=== PATIENT | female | born 1940 | race Caucasian/White ===

== ENCOUNTER → 2016-09-26 | Outpatient (CLI) | payer OTHER, MEDICARE ==
[2016-09-26 09:39] LABS: HEMATOCRIT 41.6 % (37.0-47.0); HEMOGLOBIN 13.9 g/dL (12.0-16.0); MEAN CORPUSCULAR HEMOGLOBIN 28.1 PG (27-31); MEAN CORPUSCULAR HGB CONC 33.4 g/dL (33-37); MEAN PLATELET VOLUME 10.3 FL (7.4-12.2); RED BLOOD COUNT 4.95 10^6/uL (4.20-5.40)
[2016-09-26 09:40] LABS: BASOPHILS # (AUTO) 0.05 10*3/UL; BASOPHILS % (AUTO) 0.8 % (0-1); EOSINOPHILS # (AUTO) 0.14 10*3/UL; EOSINOPHILS % (AUTO) 2.2 % (0-8); LYMPHOCYTES # (AUTO) 1.68 10*3/uL; MONOCYTES # (AUTO) 0.74 10*3/UL (0.3-0.8); MONOCYTES % (AUTO) 11.7 % (5-15); NEUTROPHILS # (AUTO) 3.68 10*3/UL; NEUTROPHILS % (AUTO) 58.4 % (50-80); PLATELET MORPHOLOGY COMMENT NORMAL MORPHOLOGY (NORM); RBC MORPHOLOGY COMMENT NORMAL MORPHOLOGY (NORM); WBC MORPHOLOGY COMMENT NORMAL MORPHOLOGY (NORM)
[2016-09-26 10:14] LABS: CALCIUM 9.3 mg/dL (8.7-10.7); CHOL/HDL RATIO 4.42 RATIO (0-4.0)
== END ==
LOC: LAB 09:14
PROVIDERS: ATTEND Internal Medicine
DX: I10 Essential (primary) hypertension (principal); E55.9 Vitamin D deficiency, unspecified; E78.5 Hyperlipidemia, unspecified; R53.83 Other fatigue; M15.8 Other polyosteoarthritis
CPT/HCPCS: 36415; 80053; 80061; 82652; 84443; 85025

== ENCOUNTER → 2016-09-28 | Outpatient (CLI) | payer OTHER, MEDICARE | LOC: MMPC 11:11 | PROVIDERS: ATTEND Internal Medicine | DX: R92.8 Other abnormal and inconclusive findings on diagnostic imaging of breast (principal); M81.0 Age-related osteoporosis without current pathological fracture; I10 Essential (primary) hypertension | CPT/HCPCS: 99214 ==

== ENCOUNTER → 2016-11-07 | Outpatient (CLI) | payer OTHER, MEDICARE | LOC: MMPC 11:11 | PROVIDERS: ATTEND Surgery | DX: D05.11 Intraductal carcinoma in situ of right breast (principal) | CPT/HCPCS: 99203; G0463 ==

== ENCOUNTER 2016-11-18 08:57 | Day surgery (SDC) | payer OTHER, MEDICARE ==
[~2016-11-18 08:57] MED LIST: LIDOCAINE W/ SODIUM BICARB 0.5 ML SYR ONE; Lactated Ringers 1,000 ML PRIMARY IV ONE; ceFAZolin Inj 2gm (Premix) 50 ML IV ONE
[2016-11-18 09:30] VITALS: RESP 11
[2016-11-18] MEDS ORDERED: fentaNYL Inj 100 MCG/2 ML VIAL ONE (10:19)
[2016-11-18] MEDS ORDERED: MIDAZOLAM 5 MG/1 ML ONE (10:19)
[2016-11-18] MEDS ORDERED: BUPIVACAINE 0.25% W/ EPI - 10 ML VIAL ONE (11:38)
[2016-11-18] MEDS ORDERED: DEXAMETHASONE PF 10 MG/1 ML VIAL ONE (12:19)
[2016-11-18] MEDS ORDERED: Lactated Ringers 1,000 ML PRIMARY IV ONE (12:21)
[2016-11-18] MEDS ORDERED: ePHEDrine Inj 50 MG/ML AMP ONE (12:46)
--- NOTE | 2016-11-18 13:17 | GEN.OPNOTE ---
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 Procedure: Right partial mastectomy. Surgeon: Db Laurent MD Anesthesia Provider: Madeline Hernandez CRNA Anesthesia Type: General Estimated Blood Loss (mL): 50 Fluids: 1500 mL of crystalloid. 2 g of IV Ancef at the start of the procedure. Pathology: Specimens to pathology. #1 partial mastectomy specimen inked and sutured for orientation. #2 new inferior margin. New inferior margin inked. Indications: Patient had a stereotactic biopsy which showed 2 sites of ductal carcinoma in situ in the right lateral breast. These were marked with a clip. Preoperative needle localization was performed. Findings: The wide local excision was accomplished with electrocautery. Specimen mammogram showed that the 2 clips, the wires, and some other calcifications were included in the specimen. Complications: None. Operative Summary: The patient was taken to the operating suite and placed on the operating table in the supine position. Her right arm was placed on an armboard. Following adequate general anesthetic a surgical timeout was done. The right breast was prepped and draped in a sterile fashion. An incision was made around the localization wires and carried through the subcutaneous tissue. Wide local excision was accomplished with electrocautery. This was carried down to the chest wall. The specimen was removed. The deep margin was inked with black ink. The superior margin was marked with a short suture and the lateral margin with a long suture. The specimen was sent for mammography. Mammography confirmed the areas in question had been removed with what appeared to be an adequate margin. The specimen was sent for pathologic analysis. I palpated the wound cavity. The inferior margin felt a little thickened in the breast tissue. I excised a 1 cm thick area on the inferior wall of the cavity. The new inferior margin was marked with ink. This was submitted for pathologic analysis also. Hemostasis of the cavity was assured. The cavity was irrigated with sterile water. Final irrigation was 1/4% Marcaine with epinephrine which was allowed to sit in the wound for several minutes and then removed. The deep dermis was reapproximated with inverted interrupted 3-0 Vicryl sutures. The skin was closed with running subcuticular 4-0 Prolene followed by Mastisol, Steri-Strips, and a sterile dressing. Patient tolerated the procedure well without complication. She was taken to PACU in stable condition. All counts were correct
[2016-11-18] MEDS ORDERED: HYDROcodone-APAP 5 MG -325 MG TABLET PO PRN (13:21)
[2016-11-18 15:08] VITALS: TEMP 96.8
--- NOTE | 2016-11-18 17:53 | DI ---
NEEDLE LOCALIZATION FOR RIGHT BREAST BIOPSY, 11/18/2016 10:00 AM: Clinical History: Biopsy proven breast cancer. Previous Exam: 10/27/2016. A "time out" session was performed to verify the patient's name and date of prior to informing the patient of the risks and benefits for this procedure. The right breast was prepped with ChloraPre p with Tint. The breast was then positioned for the needle localization procedure in the mammographic machine. A film was obtained for localization. 2, 7 cm long 21g Kopan's Skipwith were then inserted t o bracket the area of interest. A second film was obtained in an orthogonal position to verify positi on of the needles. The needles were adjusted as necessary to be in proximity to the lesion. Prior to deployment of the hook wires, 0.1 cc of methylene blue was injected through each needle. The hook wir es were then deployed and a final film was obtained in the same position to verify position of the wi res. The patient was discharged to the surgical holding area in stable condition. Reading: Successful right breast needle localization as above. RIGHT BREAST BIOPSY SPECIMEN RADIOGRAPHS, 11/18/2016 10:00 AM: Magnified specimen radiographs were obtained. The radiographs confirm excision of the tissue that was bracketed in proximity to the surgical clips noted on the mammogram. Reading: The specimen radiographs confirm excision of tissue from the targeted area.
== END 2016-11-18 14:53 | disposition home or self-care (01) ==
LOC: SDSC 08:57
PROVIDERS: ATTEND Surgery
DX: D05.11 Intraductal carcinoma in situ of right breast (principal)
CPT/HCPCS: 19281; 19282; 19301; 76098; J0690; J2250; J2704; J3010; J1100; J7120

== ENCOUNTER → 2016-12-01 | Outpatient (CLI) | payer OTHER, MEDICARE | LOC: MMPC 11:11 | PROVIDERS: ATTEND Surgery | DX: D05.11 Intraductal carcinoma in situ of right breast (principal); Z90.11 Acquired absence of right breast and nipple ==

== ENCOUNTER → 2016-12-06 | Outpatient (CLI) | payer OTHER, MEDICARE ==
[2016-12-06 17:32] LABS: BILIRUBIN,URINE NEGATIVE (NEG); CLARITY,URINE CLEAR (CLEAR); COLOR,URINE YELLOW; GLUCOSE, URINE (UA) NEGATIVE (NEG); NITRATE,URINE NEGATIVE (NEG); OCCULT BLOOD,URINE Trace-intact (NEG); PROTEIN,URINE NEGATIVE (NEG); UROBILINOGEN,URINE 0.2 mg/dL (0.2)
[2016-12-06 17:49] LABS: BACTERIA,URINE FEW; SQUAMOUS EPITHELIAL CELL,UR MANY; URINE SAMPLE TYPE VOIDED SPECIMEN; WBC,URINE 15-20
== END ==
LOC: MOB LAB 16:58
PROVIDERS: ATTEND Nurse Practitioner
DX: R10.2 Pelvic and perineal pain (principal)
CPT/HCPCS: 81001

== ENCOUNTER → 2016-12-22 | Outpatient (CLI) | payer OTHER, MEDICARE | LOC: MMPC 11:11 | PROVIDERS: ATTEND Surgery | DX: D05.11 Intraductal carcinoma in situ of right breast (principal); Z90.11 Acquired absence of right breast and nipple ==